=== PATIENT | male | born 1970 | race Two or more races ===

== ENCOUNTER 2022-10-06 21:47 | Inpatient (IN) | payer SELFPAY ==
[~2022-10-06] VITALS: Ht 165.1 cm; Wt 94.8 kg
[2022-10-06 23:25] LABS: HEMATOCRIT. 26.5 % (42.0-52.0); HEMOGLOBIN. 7.8 g/dL (14.0-18.0); MEAN CORPUSCULAR HEMOGLOBIN 18.3 pg (28.0-32.0); MEAN CORPUSCULAR VOLUME 62.6 fL (80.0-94.0); MEAN PLATELET VOLUME 8.6 fl (7.4-10.4); PLATELET 64 x1000/uL (130-400); RED BLOOD CELL COUNT 4.24 mill/uL (4.7-6.1); RED CELL DISTRIBUTION WIDTH 22.2 % (11.6-14.6)
[2022-10-07 01:05] LABS: CHLORIDE 101 mEq/L (98-107)
[2022-10-07] MEDS ORDERED: DEXT 5%/0.45% NACL 1000ML 1,000 ML IV SCH (03:30)
[2022-10-07] MEDS ORDERED: CLONIDINE 0.1MG TABLET PO PRN (03:30)
[2022-10-07] MEDS ORDERED: ONDANSETRON HCL 4MG/2ML INJ IV PRN (03:30)
[2022-10-07] MEDS ORDERED: NA PHOS,M-B/NA PHOS,DI-BA ENEMA 118ML PR PRN (03:30)
[2022-10-07] MEDS ORDERED: DOCUSATE SODIUM 100MG CAPSULE PO PRN (03:30)
[2022-10-07] MEDS ORDERED: HYDROCODONE/ACETAMINOPHEN 5/325MG TABLET PO PRN (03:30)
[2022-10-07] MEDS ORDERED: ACETAMINOPHEN 325MG TABLET PO PRN ×2 (03:30)
[2022-10-07] MEDS ORDERED: MAGNESIUM/ALUMINUM HYDROXIDE/SIMETHICONE 30ML UDC PO PRN (03:30)
[2022-10-07] MEDS ORDERED: GUAIFENESIN 200MG/10ML SUGAR FREE UDC PO PRN (03:30)
[2022-10-07] MEDS ORDERED: IPRATROPIUM/ALBUTEROL 0.5-3(2.5)MG/3ML NEB HHN PRN (03:30)
[2022-10-07 04:06] LABS: HEMOGLOBIN. 7.4 g/dL (14.0-18.0); MEAN CORPUSCULAR HEMOGLOBIN 18.3 pg (28.0-32.0); MEAN CORPUSCULAR VOLUME 61.8 fL (80.0-94.0); MEAN PLATELET VOLUME 8.5 fl (7.4-10.4); PLATELET 60 x1000/uL (130-400); RED BLOOD CELL COUNT 4.04 mill/uL (4.7-6.1); RED CELL DISTRIBUTION WIDTH 22.4 % (11.6-14.6)
[2022-10-07 04:12] LABS: CHLORIDE 105 mEq/L (98-107)
[2022-10-07 04:27] LABS: HDL CHOLESTEROL 66 mg/dL (40-59); LDL CHOLESTEROL 66 mg/dL (5-100); T4 FREE 1.35 ng/dL (0.76-1.46)
[2022-10-07 04:29] LABS: D-DIMER 8.7 mg/L FEU (<0.50); INR 1.2; PROTHROMBIN TIME 13.2 sec (9.6-11.0)
[2022-10-07] MEDS ORDERED: LORAZEPAM 2MG/ML CPJ IV NR (04:30)
[2022-10-07 04:45] LABS: FOLIC ACID (FOLATE) SERUM 14.4 ng/mL (>5.38)
[2022-10-07] MEDS ORDERED: MVI, ADULT NO.1 10 ML, FOLIC ACID 1 MG, THIAMINE HCL 100 MG in SODIUM CHLORIDE 0.9% 1,0... IV SCH ×8 (05:00→18:30)
[2022-10-07 05:11] LABS: PLATELET ESTIMATE DECREASED
[2022-10-07 08:59] LABS: PLATELET ESTIMATE DECREASED
[2022-10-07] MEDS ORDERED: CHLORDIAZEPOXIDE 5 MG CAPSULE PO PRN (10:00)
[2022-10-07 10:43] LABS: PHOSPHORUS 2.1 mg/dL (2.5-4.9)
[2022-10-07 11:17] LABS: ETHANOL BLOOD < 10 mg/dL (-10)
[2022-10-07] MEDS ORDERED: MAGNESIUM 2 G PREMIX 50 ML IV SCH (11:30)
[2022-10-07 12:00] VITALS: BP_SYST 151; BP_DIAS 63; BP_DIAS 74; PULSE 101; PULSE 94; RESP 16; TEMP 98.2; TEMP 98.6
[2022-10-07 12:12] LABS: HEMATOCRIT 25.9 % (42.0-52.0); HEMOGLOBIN 7.6 g/dL (14.0-18.0)
[2022-10-07 12:28] LABS: HAPTOGLOBIN 111 mg/dL (30-200)
[2022-10-07] MEDS ORDERED: POTASSIUM PHOS,M-BASIC-D-BASIC 15 MMOL in DEXT 5% WATER 245 ML IV SCH (12:30)
[2022-10-07] MEDS: FERROUS SULFATE 325MG TABLET PO SCH (14:36)
[2022-10-07] MEDS: PANTOPRAZOLE 40MG DR TABLET PO SCH (14:36)
[2022-10-07] MEDS ORDERED: MAGNESIUM 2 G PREMIX 50 ML IV NR (15:00)
[2022-10-07 16:00] VITALS: BP 150/72; PULSE 88; RESP 18; TEMP 97.8
[2022-10-07 18:25] LABS: CLARITY URINE CLEAR (CLEAR); COLOR URINE DARK YELLOW (YELLOW); KETONES URINE NEGATIVE (NEGATIVE); LEUKOCYTE ESTERASE URINE NEGATIVE (NEGATIVE); NITRITE URINE NEGATIVE (NEGATIVE); OCCULT BLOOD URINE 1+ (NEGATIVE); PROTEIN URINE 2+ (NEGATIVE); SPECIFIC GRAVITY URINE 1.016 (1.005-1.030)
[2022-10-07 18:36] LABS: *AMPHETAMINES SCREEN URINE NEGATIVE (NEGATIVE); *BARBITURATES SCREEN URINE NEGATIVE (NEGATIVE); *BENZODIAZEPINES SCREEN URINE NEGATIVE (NEGATIVE); *COCAINE SCREEN URINE NEGATIVE (NEGATIVE); CANNABINOID URINE SCREEN NEGATIVE (NEGATIVE); METHADONE URINE SCREEN NEGATIVE (NEGATIVE); OPIATES URINE SCREEN NEGATIVE (NEGATIVE); PHENCYCLIDINE URINE SCREEN NEGATIVE (NEGATIVE)
[2022-10-07] MEDS ORDERED: METO100T16 PO (18:44)
[2022-10-07] MEDS ORDERED: TRIA1TAB92 MT (18:44)
[2022-10-07] MEDS ORDERED: FERR236T3 MT (18:44)
[2022-10-07] MEDS ORDERED: THIA100T72 PO (18:44)
[2022-10-07 18:52] LABS: HEMOGLOBIN 7.8 g/dL (14.0-18.0)
[2022-10-07] MEDS ORDERED: NALOXONE HCL 0.4MG/ML VIAL IV PRN (19:15)
[2022-10-07 20:00] VITALS: BP 143/67; PULSE 89; RESP 18; TEMP 97.6
[2022-10-07] MEDS ORDERED: LORAZEPAM 2MG/ML CPJ IV PRN (23:15)
[2022-10-08] VITALS: BP 145/82; PULSE 86; RESP 20; TEMP 97.7
[2022-10-08 01:05] LABS: HEMATOCRIT 26.3 % (42.0-52.0); HEMOGLOBIN 7.6 g/dL (14.0-18.0)
[2022-10-08 04:00] VITALS: BP 148/61; PULSE 84; RESP 19; TEMP 97.6
[2022-10-08] MEDS ORDERED: CHLORDIAZEPOXIDE 25MG CAPSULE PO SCH (06:00)
[2022-10-08 06:50] LABS: HEMOGLOBIN 7.3 g/dL (14.0-18.0)
[2022-10-08 08:00] VITALS: BP 154/72; PULSE 81; RESP 18; TEMP 98.8
[2022-10-08] MEDS: THIAMINE HCL 100MG TABLET PO SCH (08:21)
[2022-10-08] MEDS: FERROUS SULFATE 325MG TABLET PO SCH (08:21)
[2022-10-08] MEDS: PANTOPRAZOLE 40MG DR TABLET PO SCH (08:21)
[2022-10-08] MEDS ORDERED: LORAZEPAM 2MG/ML CPJ IV PRN (09:15)
[2022-10-08 10:58] LABS: CHLORIDE 106 mEq/L (98-107)
[2022-10-08 11:13] LABS: PHOSPHORUS 2.5 mg/dL (2.5-4.9)
[2022-10-08 12:00] VITALS: BP_SYST 152; BP_SYST 154; BP_SYST 156; BP_DIAS 67; BP_DIAS 72; BP_DIAS 75; PULSE 80; RESP 18; TEMP 97.7
[2022-10-08 12:44] LABS: HEMOGLOBIN 7.3 g/dL (14.0-18.0)
[2022-10-08] MEDS: CHLORDIAZEPOXIDE 25MG CAPSULE PO SCH ×2 (14:53→21:30)
[2022-10-08 16:00] VITALS: BP 151/76; PULSE 76; RESP 18; TEMP 96.8
[2022-10-08 18:32] LABS: HEMATOCRIT 27.5 % (42.0-52.0); HEMOGLOBIN 7.9 g/dL (14.0-18.0)
[2022-10-08 20:00] VITALS: BP_SYST 158; BP_SYST 160; BP_SYST 161; BP_DIAS 69; BP_DIAS 73; BP_DIAS 85; PULSE 82; RESP 20; TEMP 97.9
[2022-10-08] MEDS ORDERED: DIPHENHYDRAMINE 12.5MG/5ML UDC PO ONE (20:45)
[2022-10-08] MEDS ORDERED: DIPHENHYDRAMINE 50MG/ML VIAL IV NR (21:00)
[2022-10-09] VITALS: BP_SYST 142; BP_SYST 148; BP_SYST 152; BP_DIAS 65; BP_DIAS 68; BP_DIAS 76; PULSE 72; RESP 18; TEMP 98
[2022-10-09 04:00] VITALS: BP_SYST 135; BP_SYST 138; BP_SYST 140; BP_DIAS 73; BP_DIAS 75; BP_DIAS 82; PULSE 90; RESP 20; TEMP 98.5
[2022-10-09] MEDS: CHLORDIAZEPOXIDE 25MG CAPSULE PO SCH ×3 (05:11→20:27)
[2022-10-09] MEDS: PANTOPRAZOLE 40MG DR TABLET PO SCH (07:53)
[2022-10-09 08:00] VITALS: BP 141/77; PULSE 66; RESP 16; TEMP 97.8
[2022-10-09 08:39] LABS: HEMATOCRIT 26.7 % (42.0-52.0); HEMOGLOBIN 7.7 g/dL (14.0-18.0); MEAN CORPUSCULAR HEMOGLOBIN 18.2 pg (28.0-32.0); MEAN CORPUSCULAR VOLUME 62.8 fL (80.0-94.0); RED BLOOD CELL COUNT 4.25 mill/uL (4.7-6.1); RED CELL DISTRIBUTION WIDTH 22.8 % (11.6-14.6)
[2022-10-09] MEDS: THIAMINE HCL 100MG TABLET PO SCH (09:06)
[2022-10-09] MEDS: FERROUS SULFATE 325MG TABLET PO SCH (09:06)
[2022-10-09 11:27] LABS: CHLORIDE 106 mEq/L (98-107)
[2022-10-09 12:00] VITALS: BP_SYST 113; BP_SYST 126; BP_SYST 130; BP_DIAS 49; BP_DIAS 75; BP_DIAS 92; PULSE 85; RESP 16; TEMP 98
[2022-10-09 12:34] LABS: PHOSPHORUS 3.6 mg/dL (2.5-4.9)
[2022-10-09 16:00] VITALS: BP_SYST 135; BP_SYST 140; BP_DIAS 56; BP_DIAS 76; BP_DIAS 77; PULSE 88; RESP 16; TEMP 97.9
[2022-10-09] MEDS ORDERED: POTASSIUM CHLORIDE 20MEQ TABLET SR PO NR (17:30)
[2022-10-09 20:00] VITALS: BP_SYST 129; BP_SYST 135; BP_SYST 155; BP_DIAS 64; BP_DIAS 70; BP_DIAS 72; PULSE 92; RESP 20; TEMP 98.3
[2022-10-10] VITALS: BP 153/72; PULSE 85; RESP 20; TEMP 98.3
[2022-10-10 04:00] VITALS: BP 149/52; PULSE 88; RESP 20; TEMP 98.4
[2022-10-10] MEDS: CHLORDIAZEPOXIDE 25MG CAPSULE PO SCH (05:39)
[2022-10-10] MEDS: PANTOPRAZOLE 40MG DR TABLET PO SCH (05:39)
[2022-10-10 07:51] LABS: HEMATOCRIT 26.5 % (42.0-52.0); HEMOGLOBIN 7.8 g/dL (14.0-18.0); MEAN CORPUSCULAR HEMOGLOBIN 18.7 pg (28.0-32.0); MEAN CORPUSCULAR VOLUME 63.8 fL (80.0-94.0); RED BLOOD CELL COUNT 4.16 mill/uL (4.7-6.1); RED CELL DISTRIBUTION WIDTH 23.6 % (11.6-14.6)
[2022-10-10 08:00] VITALS: BP 143/74; PULSE 99; RESP 20; TEMP 97.6
[2022-10-10] MEDS: FERROUS SULFATE 325MG TABLET PO SCH (08:39)
[2022-10-10] MEDS: THIAMINE HCL 100MG TABLET PO SCH (08:39)
[2022-10-10] MEDS ORDERED: THIA100T72 PO (09:00)
[2022-10-10] MEDS ORDERED: METOPROLOL TARTRATE 25MG TABLET PO SCH (09:00)
[2022-10-10] MEDS ORDERED: FOLI-43 MT (09:00)
[2022-10-10 10:26] LABS: CHLORIDE 107 mEq/L (98-107)
[2022-10-10 10:45] LABS: PHOSPHORUS 3.3 mg/dL (2.5-4.9)
[2022-10-10 10:55] VITALS: BP 143/74; PULSE 99; TEMP 97.6; O2SAT 98
[2022-10-10 11:25] LABS: PLATELET 100 x1000/uL (130-400)
[2022-10-11 04:12] LABS: HLA CLASS 1 ANTIBODY Negative (Negative); IIb/IIIa ANTIBODY Negative (Negative); Ia/IIa ANTIBODY Negative (Negative); Ib/IX ANTIBODY Negative (Negative)
== END 2022-10-10 13:58 | disposition home or self-care (01) | DRG 204 ==
LOC: ER 23:00 → 7WST 10-07 11:35
PROVIDERS: ADMIT Internal Medicine; ATTEND Internal Medicine
DX: R55 Syncope and collapse (principal); D65 Disseminated intravascular coagulation [defibrination syndrome]; E46 Unspecified protein-calorie malnutrition; E83.39 Other disorders of phosphorus metabolism; D50.9 Iron deficiency anemia, unspecified; F17.210 Nicotine dependence, cigarettes, uncomplicated; K74.60 Unspecified cirrhosis of liver; E83.42 Hypomagnesemia; K76.0 Fatty (change of) liver, not elsewhere classified; R73.9 Hyperglycemia, unspecified; F10.139 Alcohol abuse with withdrawal, unspecified; I10 Essential (primary) hypertension; E87.6 Hypokalemia; R56.9 Unspecified convulsions; I83.93 Asymptomatic varicose veins of bilateral lower extremities; I87.2 Venous insufficiency (chronic) (peripheral); R16.1 Splenomegaly, not elsewhere classified; Y90.9 Presence of alcohol in blood, level not specified; Z91.148 Patient's other noncompliance with medication regimen for other reason; Z68.34 Body mass index [BMI] 34.0-34.9, adult
CPT/HCPCS: 36415; 71045; 76700; 80048; 80053; 80061; 80305; 80320; 81003; 82248; 82607; 82728; 82746; 82962; 83010; 83036; 83540; 83615; 83735; 83880; 84100; 84439; 84443; 84484; 85014; 85018; 85025; 85027; 85044; 85379; 85576; 86022; 86850; 86900; 93005; 93306; 93880; 93970; 97162; 99285; J1200; J2310; J3411; J3475; J3490; J7030; J7060; G0480

== ENCOUNTER 2023-04-09 20:18 | Emergency (ER) | payer SELFPAY ==
[~2023-04-09] VITALS: Ht 175.3 cm; Wt 104.0 kg
[~2023-04-09 20:18] MED LIST: FERR236T3 MT; FOLI-43 MT; METO100T16 PO; THIA100T72 PO
[2023-04-09 20:20] VITALS: O2SAT 100
[2023-04-09] MEDS ORDERED: LEVETIRACETAM 500MG PREMIX 100 ML IV ONE ×2 (20:45)
[2023-04-09] MEDS ORDERED: LORAZEPAM 2MG/ML INJ IV ONE (20:45)
[2023-04-09] MEDS ORDERED: SODIUM CHLORIDE 0.9% 1,000 ML IV ONE (20:45)
[2023-04-09 20:54] LABS: HEMATOCRIT. 29.3 % (42.0-52.0); HEMOGLOBIN. 8.4 g/dL (14.0-18.0); MEAN CORPUSCULAR HEMOGLOBIN 18.9 pg (28.0-32.0); MEAN CORPUSCULAR HGB CONC 28.6 g/dL (31.0-37.0); MEAN CORPUSCULAR VOLUME 66.2 fL (80.0-94.0); MEAN PLATELET VOLUME 8.3 fl (7.4-10.4); RED BLOOD CELL COUNT 4.43 mill/uL (4.7-6.1); RED CELL DISTRIBUTION WIDTH 21.2 % (11.6-14.6); WHITE BLOOD COUNT 5.4 x1000/uL (4.5-11.0)
[2023-04-09 21:07] LABS: DIFFERENTIAL COMMENT 1; PLATELET 45 x1000/uL (130-400)
[2023-04-09 21:15] LABS: ALANINE AMINOTRANSFERASE 34 IU/L (10-49); ALBUMIN 3.6 g/dL (3.2-4.8); ASPARTATE AMINOTRANSFERASE 96 IU/L (<34); BILIRUBIN TOTAL 2.2 mg/dL (0.1-1.0); CALCIUM 8.4 mg/dL (8.7-10.4); CARBON DIOXIDE 20 mEq/L (21-32); CHLORIDE 98 mEq/L (98-107); CREATININE 0.7 mg/dL (0.6-1.3); GLUCOSE 200 mg/dL (70-105); POTASSIUM 3.4 mEq/L (3.5-5.1); PROTEIN TOTAL 8.1 g/dL (6.0-8.3); SODIUM 134 mEq/L (136-145); TROPONIN I HIGH SENSITIVITY 9 ng/L (3.0-53); UREA NITROGEN BLOOD 10 mg/dL (9-23)
[2023-04-09 21:36] LABS: ANISOCYTOSIS 1+; PLATELET ESTIMATE MARKEDLY DECREASED
[2023-04-09 21:37] LABS: HYPOCHROMASIA 3+; MICROCYTOSIS 3+
[2023-04-09 22:51] LABS: CLARITY URINE CLEAR (CLEAR); COLOR URINE YELLOW (YELLOW); GLUCOSE URINE NEGATIVE (NEGATIVE); KETONES URINE NEGATIVE (NEGATIVE); LEUKOCYTE ESTERASE URINE NEGATIVE (NEGATIVE); NITRITE URINE NEGATIVE (NEGATIVE); OCCULT BLOOD URINE 1+ (NEGATIVE); PH URINE 7.5 (4.5-8.0); PROTEIN URINE 1+ (NEGATIVE); SPECIFIC GRAVITY URINE 1.004 (1.005-1.030)
[2023-04-09 23:19] LABS: WBC URINE NONE SEEN /hpf (0-2)
[2023-04-09 23:20] LABS: BACTERIA URINE NONE SEEN; SQUAMOUS EPITHELIAL CELL URINE NONE SEEN /lpf (RARE/1+)
[2023-04-10] MEDS ORDERED: KEPP500 MT (00:46)
[2023-04-10 01:54] VITALS: BP 149/59; PULSE 78; RESP 14; TEMP 98.4
[2023-04-10 03:40] LABS: *AMPHETAMINES SCREEN URINE NEGATIVE (NEGATIVE); *BARBITURATES SCREEN URINE NEGATIVE (NEGATIVE); *BENZODIAZEPINES SCREEN URINE NEGATIVE (NEGATIVE); *COCAINE SCREEN URINE NEGATIVE (NEGATIVE); CANNABINOID URINE SCREEN NEGATIVE (NEGATIVE); ECSTASY MDMA SCREEN URINE NEGATIVE (NEGATIVE); METHADONE URINE SCREEN Neg (NEGATIVE); OPIATES URINE SCREEN NEGATIVE (NEGATIVE); PHENCYCLIDINE URINE SCREEN NEGATIVE (NEGATIVE)
== END 2023-04-10 02:00 | disposition home or self-care (01) ==
LOC: ER 20:21
DX: G40.901 Epilepsy, unspecified, not intractable, with status epilepticus (principal); F10.10 Alcohol abuse, uncomplicated
CPT/HCPCS: 99285; 96365; 70450; 71045; 96375; 80053; 80305; 83880; 85025; 84484; 36415; 93005; 81003; J1953; J2060; J7030

== ENCOUNTER 2023-07-15 18:00 | Inpatient (IN) | payer SELFPAY ==
[~2023-07-15] VITALS: Ht 167.6 cm; Wt 113.9 kg
[~2023-07-15 18:00] MED LIST changes: +KEPP500 MT
[2023-07-15] MEDS: SODIUM CHLORIDE 0.9% 1,000 ML IV ONE (18:31)
[2023-07-15] MEDS: LEVETIRACETAM 500MG PREMIX 100 ML IV ONE (18:31)
[2023-07-15 18:39] LABS: HEMATOCRIT. 28.4 % (42.0-52.0); HEMOGLOBIN. 8.1 g/dL (14.0-18.0); MEAN CORPUSCULAR HEMOGLOBIN 18.9 pg (28.0-32.0); MEAN CORPUSCULAR HGB CONC 28.4 g/dL (31.0-37.0); MEAN CORPUSCULAR VOLUME 66.4 fL (80.0-94.0); RED BLOOD CELL COUNT 4.27 mill/uL (4.7-6.1); RED CELL DISTRIBUTION WIDTH 21.1 % (11.6-14.6); WHITE BLOOD COUNT 5.7 x1000/uL (4.5-11.0)
[2023-07-15 18:42] LABS: CHLORIDE 102 mEq/L (98-107); POTASSIUM 3.4 mEq/L (3.5-5.1); SODIUM 136 mEq/L (136-145)
[2023-07-15 18:43] LABS: CALCIUM 8.3 mg/dL (8.7-10.4); CARBON DIOXIDE 15 mEq/L (21-32)
[2023-07-15] MEDS ORDERED: BACITRACIN ZINC OINT UDPKT TOP ONE (18:45)
[2023-07-15 18:48] LABS: GLUCOSE 247 mg/dL (70-105); UREA NITROGEN BLOOD 11 mg/dL (9-23)
[2023-07-15 18:49] LABS: DIFFERENTIAL COMMENT 1; TROPONIN I HIGH SENSITIVITY 7 ng/L (3.0-53)
[2023-07-15 18:50] LABS: ALANINE AMINOTRANSFERASE 44 IU/L (10-49); ALBUMIN 3.9 g/dL (3.2-4.8); ASPARTATE AMINOTRANSFERASE 141 IU/L (<34); ETHANOL BLOOD < 10 mg/dL (<10); MEAN PLATELET VOLUME 8.5 fl (7.4-10.4); PLATELET 45 x1000/uL (130-400)
[2023-07-15 18:51] LABS: BILIRUBIN TOTAL 3.1 mg/dL (0.1-1.0); PROTEIN TOTAL 7.8 g/dL (6.0-8.3)
[2023-07-15] MEDS ORDERED: FOLIC ACID 1 MG, THIAMINE HCL 100 MG, MVI, ADULT NO.1 10 ML in DEXTROSE 5% WATER 1,000 ML IV ONE (19:00)
[2023-07-15 19:18] LABS: ATYPICAL LYMPHOCYTES 2; NUCLEATED RED BLOOD CELLS 4 /100 WBC
[2023-07-15 19:19] LABS: HYPOCHROMASIA 2+; MICROCYTOSIS 2+; PLATELET ESTIMATE MARKEDLY DECREASED
[2023-07-15] MEDS ORDERED: ONDANSETRON HCL 4MG/2ML INJ IV PRN (21:15)
[2023-07-15] MEDS ORDERED: ACETAMINOPHEN 650MG/20.3ML UDC GT PRN (21:15)
[2023-07-15] MEDS ORDERED: IPRATROPIUM/ALBUTEROL 0.5-3(2.5)MG/3ML NEB HHN PRN (21:15)
[2023-07-15] MEDS ORDERED: MAGNESIUM/ALUMINUM HYDROXIDE/SIMETHICONE 30ML UDC PO PRN (21:15)
[2023-07-15] MEDS ORDERED: MVI, ADULT NO.1 10 ML, FOLIC ACID 1 MG, THIAMINE HCL 100 MG in SODIUM CHLORIDE 0.9% 1,0... IV SCH (21:15)
[2023-07-15] MEDS: KETOROLAC 15MG/ML VIAL IV ONE (22:00)
[2023-07-15] MEDS: LORAZEPAM 2MG/ML INJ IV ONE (22:00)
[2023-07-15] MEDS ORDERED: [UNRECOGNIZED DRUG - REMARK] IV SCH (22:00)
[2023-07-15] MEDS: [UNRECOGNIZED DRUG - REMARK] IV SCH (22:25)
[2023-07-15] MEDS: PANTOPRAZOLE SODIUM 40 MG/VIAL IV SCH (22:29)
[2023-07-15] MEDS: BACITRACIN ZINC OINT UDPKT TOP NR (22:31)
[2023-07-15 22:44] LABS: CLARITY URINE CLEAR (CLEAR); COLOR URINE YELLOW (YELLOW); GLUCOSE URINE NEGATIVE (NEGATIVE); KETONES URINE NEGATIVE (NEGATIVE); LEUKOCYTE ESTERASE URINE NEGATIVE (NEGATIVE); NITRITE URINE NEGATIVE (NEGATIVE); OCCULT BLOOD URINE 1+ (NEGATIVE); PROTEIN URINE 1+ (NEGATIVE); SPECIFIC GRAVITY URINE 1.011 (1.005-1.030)
[2023-07-15 22:53] LABS: *AMPHETAMINES SCREEN URINE NEGATIVE (NEGATIVE); *BARBITURATES SCREEN URINE NEGATIVE (NEGATIVE); *BENZODIAZEPINES SCREEN URINE NEGATIVE (NEGATIVE); *COCAINE SCREEN URINE NEGATIVE (NEGATIVE); BACTERIA URINE NONE SEEN; CANNABINOID URINE SCREEN NEGATIVE (NEGATIVE); ECSTASY MDMA SCREEN URINE NEGATIVE (NEGATIVE); METHADONE URINE SCREEN NEGATIVE (NEGATIVE); OPIATES URINE SCREEN NEGATIVE (NEGATIVE); PHENCYCLIDINE URINE SCREEN NEGATIVE (NEGATIVE); SQUAMOUS EPITHELIAL CELL URINE 1+ /lpf (RARE/1+); WBC URINE 0-2 /hpf (0-2)
[2023-07-15] MEDS: DIATR MEGLU/DIATRIZOATE SOLN 30ML ONE (23:28)
[2023-07-16] VITALS (8 sets, daily range): BP systolic 128–144; BP diastolic 70–78; PULSE 70–93; RESP 16–26; TEMP 97.4–99.9
[2023-07-16 00:11] LABS: HEMATOCRIT 25.9 % (42.0-52.0); HEMOGLOBIN 7.6 g/dL (14.0-18.0)
[2023-07-16 00:19] LABS: CARBON DIOXIDE 27 mEq/L (21-32); CHLORIDE 105 mEq/L (98-107); POTASSIUM 3.5 mEq/L (3.5-5.1); SODIUM 138 mEq/L (136-145)
[2023-07-16 00:20] LABS: D-DIMER 4.31 mg/L FEU (<0.50); INR 1.2; PARTIAL THROMBOPLASTIN TIME 25.4 sec (23.4-31.0); PROTHROMBIN TIME 12.8 sec (9.6-11.0)
[2023-07-16 00:24] LABS: CREATININE 0.7 mg/dL (0.6-1.3); IRON 23 ug/dL (65-175)
[2023-07-16 00:25] LABS: GLUCOSE 141 mg/dL (70-105); UREA NITROGEN BLOOD 9 mg/dL (9-23)
[2023-07-16 00:26] LABS: AMMONIA < 17 uMol/L (<32); CREATINE KINASE MB FRACTION 2.9 ng/mL (0.5-3.6)
[2023-07-16 00:27] LABS: BILIRUBIN DIRECT 1.8 mg/dL (<=3.0); GAMMA GLUTAMYL TRANSPEPTIDASE 648 IU/L (<73); PHOSPHORUS 2.1 mg/dL (2.5-4.9); TOTAL IRON BINDING CAPACITY 282 ug/dl (250-425)
[2023-07-16 00:33] LABS: FERRITIN 16 ng/mL (22-322)
[2023-07-16 00:35] LABS: FOLIC ACID (FOLATE) SERUM 13.94 ng/mL (>5.38); VITAMIN B12 SERUM 1017 pg/mL (211-911)
[2023-07-16 00:46] LABS: HEPATITIS B SURFACE ANTIGEN NEGATIVE (Negative)
[2023-07-16 01:06] LABS: HEPATITIS A AB IGM NEGATIVE (Negative)
[2023-07-16 01:07] LABS: HEPATITIS B CORE AB IGM NEGATIVE (Negative); HEPATITIS C AB NON REACTIVE (Neg) (Negative)
[2023-07-16] MEDS: POTASSIUM PHOSPHATE 30 MMOL in SODIUM CHLORIDE 0.9% 490 ML IV NR (02:38)
[2023-07-16] MEDS ORDERED: DEXTROSE 50% WATER 50ML SYRINGE IV PRN (03:30)
[2023-07-16] MEDS ORDERED: DEXT 5%/0.2% NACL 1,000 ML IV SCH (03:45)
[2023-07-16 04:57] LABS: HEMATOCRIT. 26.1 % (42.0-52.0); HEMOGLOBIN. 7.6 g/dL (14.0-18.0); MEAN CORPUSCULAR HEMOGLOBIN 18.7 pg (28.0-32.0); MEAN CORPUSCULAR HGB CONC 28.9 g/dL (31.0-37.0); MEAN CORPUSCULAR VOLUME 64.8 fL (80.0-94.0); MEAN PLATELET VOLUME 8.6 fl (7.4-10.4); RED BLOOD CELL COUNT 4.04 mill/uL (4.7-6.1); RED CELL DISTRIBUTION WIDTH 21.6 % (11.6-14.6); WHITE BLOOD COUNT 4.7 x1000/uL (4.5-11.0)
[2023-07-16 05:01] LABS: DIFFERENTIAL COMMENT 1
[2023-07-16 05:02] LABS: CHLORIDE 105 mEq/L (98-107); POTASSIUM 3.6 mEq/L (3.5-5.1); SODIUM 136 mEq/L (136-145)
[2023-07-16 05:03] LABS: CARBON DIOXIDE 24 mEq/L (21-32)
[2023-07-16 05:08] LABS: CREATININE 0.7 mg/dL (0.6-1.3); GLUCOSE 167 mg/dL (70-105); TRIGLYCERIDE 100 mg/dL (0-150); UREA NITROGEN BLOOD 7 mg/dL (9-23)
[2023-07-16 05:09] LABS: LDL CHOLESTEROL 99 mg/dL (5-100); PLATELET 37 x1000/uL (130-400)
[2023-07-16 05:10] LABS: ALANINE AMINOTRANSFERASE 41 IU/L (10-49); ALBUMIN 3.5 g/dL (3.2-4.8); ASPARTATE AMINOTRANSFERASE 129 IU/L (<34); BILIRUBIN TOTAL 3.4 mg/dL (0.1-1.0); CHOLESTEROL 179 mg/dL (<200); HDL CHOLESTEROL 74 mg/dL (>55); PHOSPHORUS 2.4 mg/dL (2.5-4.9)
[2023-07-16 05:11] LABS: PROTEIN TOTAL 7.3 g/dL (6.0-8.3)
[2023-07-16 05:12] LABS: THYROID STIMULATING HORMONE 2.37 uIU/mL (0.55-4.78)
[2023-07-16 05:23] LABS: GIANT PLATELETS 1+; HYPOCHROMASIA 2+; PLATELET ESTIMATE MARKEDLY DECREASED
[2023-07-16 05:24] LABS: OVALOCYTES 1+; TARGET CELLS 3+
[2023-07-16 05:25] LABS: TEAR DROP CELLS 1+
[2023-07-16] MEDS ORDERED: ONDANSETRON HCL 4MG/2ML INJ IV PRN (06:30)
[2023-07-16] MEDS ORDERED: DEXT 5%/0.45% NACL 1000ML 1,000 ML IV SCH (06:30)
[2023-07-16] MEDS ORDERED: IPRATROPIUM/ALBUTEROL 0.5-3(2.5)MG/3ML NEB HHN PRN (06:30)
[2023-07-16] MEDS ORDERED: PIPERACILLIN/TAZOBACTAM 3.375 G in DEXTROSE 5% WATER 50 ML IV SCH (06:30)
[2023-07-16] MEDS ORDERED: ACETAMINOPHEN 325MG TABLET PO PRN (06:30)
[2023-07-16] MEDS ORDERED: PIPERACILLIN/TAZO 3.375G/50ML IV SCH (06:45)
[2023-07-16] MEDS ORDERED: IOHEXOL-300 100 ML BOTTLE ONE (07:06)
[2023-07-16] MEDS: BLOOD SUGAR DIAGNOSTIC STRIP TEST SCH (07:30)
[2023-07-16] MEDS: INSULIN LISPRO 100 UNITS/ML SUBCUT SCH (08:00)
[2023-07-16] MEDS ORDERED: THIAMINE HCL 100MG TABLET PO SCH (09:00)
[2023-07-16] MEDS ORDERED: PANTOPRAZOLE SODIUM 40 MG/VIAL IV SCH (09:00)
[2023-07-16] MEDS: LEVETIRACETAM 500MG PREMIX 100 ML IV SCH ×2 (09:37→21:46)
[2023-07-16] MEDS: MAGNESIUM 2 G PREMIX 50 ML IV NR (09:38)
[2023-07-16] MEDS: POTASSIUM PHOSPHATE 15 MMOL in DEXT 5% WATER 245 ML IV NR (09:40)
[2023-07-16] MEDS: FOLIC ACID 1MG TABLET PO SCH (10:01)
[2023-07-16] MEDS: MULTIVITAMINS,THER W-MINERALS TABLET PO SCH (10:01)
[2023-07-16] MEDS: THIAMINE HCL 100MG TABLET PO SCH (10:02)
[2023-07-16] MEDS: PANTOPRAZOLE SODIUM 40 MG/VIAL IV SCH (10:02)
[2023-07-16] MEDS: CEFTRIAXONE 2GM/50ML 50 ML IV SCH (11:02)
[2023-07-16 13:01] LABS: HEMATOCRIT 26.2 % (42.0-52.0); HEMOGLOBIN 7.6 g/dL (14.0-18.0)
[2023-07-16] MEDS: METRONIDAZOLE 500 MG PREMIX 100 ML IV SCH (14:53)
[2023-07-16] MEDS: LACTATED RINGERS 1,000 ML IV SCH (14:54)
[2023-07-16] MEDS: CHLORDIAZEPOXIDE 10MG CAPSULE PO SCH (17:38)
[2023-07-17] VITALS: BP 122/57; PULSE 72; RESP 28; TEMP 97.7
[2023-07-17 04:00] VITALS: BP 154/70; PULSE 76; RESP 26; TEMP 97.9
[2023-07-17 07:58] LABS: HEMOGLOBIN 7.7 g/dL (14.0-18.0); MEAN CORPUSCULAR HEMOGLOBIN 18.4 pg (28.0-32.0); MEAN CORPUSCULAR HGB CONC 28.4 g/dL (31.0-37.0); MEAN CORPUSCULAR VOLUME 64.8 fL (80.0-94.0); RED BLOOD CELL COUNT 4.16 mill/uL (4.7-6.1); RED CELL DISTRIBUTION WIDTH 21.4 % (11.6-14.6); WHITE BLOOD COUNT 4.1 x1000/uL (4.5-11.0)
[2023-07-17 08:00] VITALS: BP 154/99; PULSE 86; RESP 29; TEMP 97.9
[2023-07-17 08:13] LABS: CHLORIDE 105 mEq/L (98-107); POTASSIUM 3.6 mEq/L (3.5-5.1); SODIUM 137 mEq/L (136-145)
[2023-07-17 08:16] LABS: CARBON DIOXIDE 22 mEq/L (21-32)
[2023-07-17 08:17] LABS: CALCIUM 8.6 mg/dL (8.7-10.4)
[2023-07-17 08:21] LABS: CREATININE 0.7 mg/dL (0.6-1.3); GLUCOSE 119 mg/dL (70-105)
[2023-07-17 08:22] LABS: UREA NITROGEN BLOOD 6 mg/dL (9-23)
[2023-07-17 08:23] LABS: ALANINE AMINOTRANSFERASE 36 IU/L (10-49); ALBUMIN 3.2 g/dL (3.2-4.8); ASPARTATE AMINOTRANSFERASE 107 IU/L (<34); CREATINE KINASE 396 IU/L (46-171)
[2023-07-17 08:24] LABS: BILIRUBIN TOTAL 2.7 mg/dL (0.1-1.0); PHOSPHORUS 3.1 mg/dL (2.5-4.9); PROTEIN TOTAL 6.8 g/dL (6.0-8.3)
[2023-07-17] MEDS: METOPROLOL TARTRATE 100MG TABLET PO SCH (08:27)
[2023-07-17 10:00] VITALS: BP 123/77; PULSE 71; RESP 28
[2023-07-17] MEDS: CEFTRIAXONE 1GM/50ML 50 ML IV SCH (10:02)
[2023-07-17 10:04] LABS: PLATELET 40 x1000/uL (130-400)
[2023-07-17] MEDS ORDERED: KEPP500 MT (12:18)
[2023-07-17] MEDS ORDERED: FOLI-43 MT (12:18)
[2023-07-17 12:25] VITALS: BP 123/77; PULSE 71; TEMP 97.9; O2SAT 96
== END 2023-07-17 14:54 | disposition home or self-care (01) | DRG 53 ==
LOC: ER 18:00 → 5EST 20:27 → EDBEDREQ 20:38 → EDBEDREQTM 20:38 → ER 07-16 05:45
PROVIDERS: ADMIT Internal Medicine; ATTEND Internal Medicine
DX: G40.909 Epilepsy, unspecified, not intractable, without status epilepticus (principal); D69.6 Thrombocytopenia, unspecified; D68.59 Other primary thrombophilia; M62.82 Rhabdomyolysis; K76.6 Portal hypertension; D50.9 Iron deficiency anemia, unspecified; E80.6 Other disorders of bilirubin metabolism; K70.30 Alcoholic cirrhosis of liver without ascites; R73.9 Hyperglycemia, unspecified; I10 Essential (primary) hypertension; D69.59 Other secondary thrombocytopenia; E83.42 Hypomagnesemia; E87.6 Hypokalemia; K57.32 Diverticulitis of large intestine without perforation or abscess without bleeding; R73.03 Prediabetes; F10.139 Alcohol abuse with withdrawal, unspecified; Z91.148 Patient's other noncompliance with medication regimen for other reason; Z68.41 Body mass index [BMI] 40.0-44.9, adult; Z79.899 Other long term (current) drug therapy
CPT/HCPCS: 36415; 71045; 71270; 73130; 73560; 74178; 76705; 80048; 80053; 80061; 80305; 80320; 81003; 82140; 82248; 82542; 82550; 82553; 82607; 82728; 82746; 82962; 82977; 83036; 83540; 83550; 83605; 83735; 83880; 84100; 84145; 84443; 84484; 85014; 85018; 85025; 85027; 85379; 86705; 86709; 87340; 93005; 93970; 99285; C9113; J0696; J1815; J1953; J3411; J3475; J3480; J3490; J7030; J7040; J7060; J7070; J7120; Q9963; Q9967; G0480

== ENCOUNTER 2025-01-20 15:35 | Inpatient (IN) | payer MEDICARE ==
[~2025-01-20] VITALS: Ht 172.7 cm; Wt 108.9 kg
[~2025-01-20 15:35] MED LIST changes: +COR3 PO; +CYAN50007 MT; +FERR-63 PO; +FOLI-43 PO; +KEPP500 PO
[2025-01-20 15:39] VITALS: O2SAT 100
[2025-01-20] MEDS: SODIUM CHLORIDE 0.9% 1,000 ML IV ONE (16:51)
[2025-01-20] MEDS: ONDANSETRON HCL 4MG/2ML INJ IV ONE (16:51)
[2025-01-20] MEDS: LEVETIRACETAM 1000MG PREMIX 100 ML IV ONE (16:51)
[2025-01-20 17:38] LABS: BASOPHILS % 0.3 % (0.0-2.0); EOSINOPHILS % 0.1 % (0.0-5.0); LYMPHOCYTES % 7.2 % (20.0-50.0); MEAN PLATELET VOLUME 9.8 fl (7.4-10.4); MONOCYTES % 10.5 % (2.0-8.0); NEUTROPHILS % 81.9 % (40.0-76.0); RED BLOOD CELL COUNT 1.94 mill/uL (4.7-6.1); RED CELL DISTRIBUTION WIDTH 20.2 % (11.6-14.6)
[2025-01-20 17:47] LABS: UREA NITROGEN BLOOD 23 mg/dL (9-23)
[2025-01-20 17:48] LABS: ASPARTATE AMINOTRANSFERASE 135 IU/L (<34); HEMATOCRIT. 15.3 % (42.0-52.0); TROPONIN I HIGH SENSITIVITY 6 ng/L (3.0-53)
[2025-01-20 17:49] LABS: BILIRUBIN DIRECT 4.5 mg/dL (<=3.0); BILIRUBIN TOTAL 6.8 mg/dL (0.1-1.0); PROTEIN TOTAL 5.1 g/dL (6.0-8.3)
[2025-01-20 17:50] LABS: HEMOGLOBIN. 4.2 g/dL (14.0-18.0)
[2025-01-20 17:51] LABS: CREATININE 1.4 mg/dL (0.6-1.3)
[2025-01-20 17:53] LABS: ADD RBC MORPHOLOGY YES; PLATELET 44 x1000/uL (130-400)
[2025-01-20] MEDS ORDERED: MAGNESIUM 2 G PREMIX 50 ML IV PRN (18:30)
[2025-01-20] MEDS ORDERED: INSULIN REGULAR (HUMULIN R) 1000UNITS/10ML VIAL IV ONE (18:30)
[2025-01-20] MEDS ORDERED: SODIUM PHOSPHATE 15 MMOL in SODIUM CHLORIDE 0.9% 245 ML IV PRN (18:30)
[2025-01-20] MEDS ORDERED: INSULIN REGULAR (DRIP) 100 UNITS in SODIUM CHLORIDE 0.9% 99 ML IV SCH (18:30)
[2025-01-20] MEDS ORDERED: BLOOD SUGAR DIAGNOSTIC STRIP TEST PRN (18:30)
[2025-01-20] MEDS ORDERED: KCL 20MEQ/100ML PREMIX 100 ML IV PRN (18:30)
[2025-01-20 18:35] LABS: PLATELET ESTIMATE DECREASED
[2025-01-20 18:49] LABS: BG BASE EXCESS -13.5 mmol/L (-2.0-3.0); BG CARBOXYHEMOGLOBIN 2.4 % (0.5-1.5); BG DEOXYHEMOGLOBIN 2.4 % (0.0-5.0); BG FRACTION INSPIRED OXYGEN 21; BG HCO3 ACT 11.4 mmol/L (21.0-28.0); BG METHEMOGLOBIN 0.2 % (0.5-1.5); BG OXYGEN SATURATION 97.5 % (94.0-98.0); BG OXYHEMOGLOBIN 95.0 % (94.0-98.0); BG PCO2 22.1 mmHg (35.0-48.0); BG PH 7.331 (7.350-7.450); BG PO2 106.5 mmHg (83.0-108.0); BG SAMPLE SITE RIGHT RADIAL; BG TOTAL HEMOGLOBIN 4.3 g/dL (13.5-17.5); BG VENT MODE ROOM AIR
[2025-01-20] MEDS: SODIUM CHLORIDE 0.9% 1,000 ML IV SCH (19:10)
[2025-01-20] MEDS ORDERED: INSULIN REGULAR 100U/100ML PMX 100 ML IV SCH (19:15)
[2025-01-20] MEDS: DEXT 5%/0.9% NACL 1,000 ML IV SCH (20:03)
[2025-01-20] MEDS ORDERED: LORAZEPAM 0.5MG TABLET PO PRN (20:30)
[2025-01-20] MEDS ORDERED: LORAZEPAM 2MG/ML UD SYRINGE IV PRN (20:30)
[2025-01-20] MEDS: INSULIN REGULAR (HUMULIN R) 1000UNITS/10ML VIAL IV NR (20:30)
[2025-01-20] MEDS ORDERED: IPRATROPIUM/ALBUTEROL 0.5-3(2.5)MG/3ML NEB HHN PRN (20:30)
[2025-01-20] MEDS ORDERED: CLONIDINE 0.1MG TABLET PO PRN (20:30)
[2025-01-20] MEDS: INSULIN REGULAR 100U/100ML PMX 100 ML IV SCH (20:55)
[2025-01-20 22:10] VITALS: PULSE 100; RESP 24
[2025-01-20] MEDS ORDERED: NOREPINEPHRINE 8MG/250ML PMX 250 ML IV ONE (22:12)
[2025-01-20 22:16] LABS: CREATININE 1.4 mg/dL (0.6-1.3)
[2025-01-20 22:17] LABS: UREA NITROGEN BLOOD 22 mg/dL (9-23)
[2025-01-20 22:18] LABS: TROPONIN I HIGH SENSITIVITY 9 ng/L (3.0-53)
[2025-01-20 22:19] LABS: PHOSPHORUS 3.5 mg/dL (2.5-4.9)
[2025-01-20] MEDS ORDERED: EPINEPHRINE 10 MG in SODIUM CHLORIDE 0.9% 240 ML IV PRN (22:45)
[2025-01-20] MEDS: DEXTROSE 50% WATER 50ML SYRINGE IV PRN (23:37)
[2025-01-21] VITALS (98 sets, daily range): BP systolic 68–145; BP diastolic 30–112; PULSE 39–137; RESP 24–84; TEMP 31.78032–33.28044; O2SAT 35–100
[2025-01-21] MEDS ORDERED: MIDAZOLAM 100MG/100ML PMX 100 ML IV PRN
[2025-01-21] MEDS: TRANEXAMIC ACID 1,000MG/10ML IV NR (00:11)
[2025-01-21] MEDS: FENTANYL 2500MCG/250ML PMX 250 ML IV PRN (00:14)
[2025-01-21] MEDS: OCTREOTIDE 1,000 MCG in SODIUM CHLORIDE 0.9% 98 ML IV SCH (00:22)
[2025-01-21] MEDS ORDERED: MAGNESIUM 2 G PREMIX 50 ML IV NR (00:30)
[2025-01-21 00:35] LABS: BG BASE EXCESS -23.3 mmol/L (-2.0-3.0); BG CARBOXYHEMOGLOBIN 0.7 % (0.5-1.5); BG DEOXYHEMOGLOBIN 0.1 % (0.0-5.0); BG FRACTION INSPIRED OXYGEN 100; BG HCO3 ACT 6.3 mmol/L (21.0-28.0); BG METHEMOGLOBIN 0.4 % (0.5-1.5); BG OXYGEN SATURATION 99.9 % (94.0-98.0); BG OXYHEMOGLOBIN 98.8 % (94.0-98.0); BG PCO2 29.6 mmHg (35.0-48.0); BG PEEP (cmH2O) 8.0 cmH2O; BG PH 6.947 (7.350-7.450); BG PO2 357.7 mmHg (83.0-108.0); BG SAMPLE SITE RIGHT RADIAL; BG TIDAL VOLUME(mL) 500.0 mL; BG TOTAL HEMOGLOBIN 4.4 g/dL (13.5-17.5); BG VENT MODE VENT - AC; BG VENT RATE 24.0 set
[2025-01-21] MEDS ORDERED: ROCURONIUM BROMIDE 10MG/ML VIAL 5ML IV ONE (00:45)
[2025-01-21] MEDS: SODIUM BICARBONATE 8.4% 50MEQ/50ML SYR IV NR ×3 (01:31→09:27)
[2025-01-21] MEDS: EPINEPHRINE 10 MG in SODIUM CHLORIDE 0.9% 240 ML IV PRN (01:32)
[2025-01-21] MEDS: PANTOPRAZOLE SODIUM 40 MG/VIAL IV SCH (01:32)
[2025-01-21] MEDS: CALCIUM GLUCONATE 100MG/ML 10ML VIAL IV NR (01:36)
[2025-01-21] MEDS: SODIUM BICARBONATE 100 MEQ in SODIUM CHLORIDE 0.45% 900 ML IV SCH (01:51)
[2025-01-21] MEDS ORDERED: FENTANYL CITRATE 2,500 MCG in SODIUM CHLORIDE 0.9% 200 ML IV PRN (02:15)
[2025-01-21] MEDS: NOREPINEPHRINE 8MG/250ML PMX 250 ML IV PRN ×2 (03:11→11:13)
[2025-01-21] MEDS: MVI, ADULT NO.1 10 ML, FOLIC ACID 1 MG, THIAMINE HCL 100 MG in SODIUM CHLORIDE 0.9% 1,0... IV ONE (03:13)
[2025-01-21] MEDS: VANCOMYCIN 2GM PMX (XELLIA) 400 ML IV NR (03:14)
[2025-01-21] MEDS: BLOOD SUGAR DIAGNOSTIC STRIP TEST SCH ×2 (03:30→12:53)
[2025-01-21 04:34] LABS: BG BASE EXCESS -25.1 mmol/L (-2.0-3.0); BG CARBOXYHEMOGLOBIN 0.4 % (0.5-1.5); BG DEOXYHEMOGLOBIN 1.8 % (0.0-5.0); BG FRACTION INSPIRED OXYGEN 100; BG HCO3 ACT 5.6 mmol/L (21.0-28.0); BG METHEMOGLOBIN 0.3 % (0.5-1.5); BG OXYGEN SATURATION 98.2 % (94.0-98.0); BG OXYHEMOGLOBIN 97.5 % (94.0-98.0); BG PCO2 27.9 mmHg (35.0-48.0); BG PEEP (cmH2O) 8.0 cmH2O; BG PH 6.917 (7.350-7.450); BG PO2 146.3 mmHg (83.0-108.0); BG SAMPLE SITE RIGHT RADIAL; BG TIDAL VOLUME(mL) 500.0 mL; BG TOTAL HEMOGLOBIN 7.0 g/dL (13.5-17.5); BG TOTAL RESPIRATORY RATE 30 b/min; BG VENT MODE VENT - AC; BG VENT RATE 30.0 set
[2025-01-21] MEDS: PIPERACILLIN/TAZO 3.375G/50ML 50 ML IV SCH (05:39)
[2025-01-21 06:32] LABS: HEMATOCRIT. 24.5 % (42.0-52.0); MEAN PLATELET VOLUME 10.7 fl (7.4-10.4); PLATELET 115 x1000/uL (130-400); RED BLOOD CELL COUNT 2.47 mill/uL (4.7-6.1); RED CELL DISTRIBUTION WIDTH 19.6 % (11.6-14.6)
[2025-01-21 06:56] LABS: HEMOGLOBIN. 6.6 g/dL (14.0-18.0); T4 FREE 0.81 ng/dL (0.89-1.76)
[2025-01-21 07:01] LABS: CREATININE 1.8 mg/dL (0.6-1.3); TRIGLYCERIDE 143 mg/dL (0-150); UREA NITROGEN BLOOD 25 mg/dL (9-23)
[2025-01-21 07:02] LABS: LDL CHOLESTEROL 44 mg/dL (5-100)
[2025-01-21 07:25] LABS: HEPATITIS A AB IGM NEGATIVE (Negative)
[2025-01-21 07:26] LABS: HEPATITIS B CORE AB IGM NEGATIVE (Negative)
[2025-01-21 07:27] LABS: HEPATITIS C AB NON REACTIVE (Neg) (Negative)
[2025-01-21 08:42] LABS: BG BASE EXCESS -25.2 mmol/L (-2.0-3.0); BG CARBOXYHEMOGLOBIN 1.9 % (0.5-1.5); BG DEOXYHEMOGLOBIN 8.1 % (0.0-5.0); BG FRACTION INSPIRED OXYGEN 100; BG HCO3 ACT 5.8 mmol/L (21.0-28.0); BG METHEMOGLOBIN 0.1 % (0.5-1.5); BG OXYGEN SATURATION 91.7 % (94.0-98.0); BG OXYHEMOGLOBIN 89.9 % (94.0-98.0); BG PCO2 31.1 mmHg (35.0-48.0); BG PEEP (cmH2O) 8.0 cmH2O; BG PH 6.886 (7.350-7.450); BG PO2 81.3 mmHg (83.0-108.0); BG SAMPLE SITE LEFT RADIAL; BG TIDAL VOLUME(mL) 500.0 mL; BG TOTAL HEMOGLOBIN 6.5 g/dL (13.5-17.5); BG VENT MODE VENT - AC; BG VENT RATE 30.0 set
[2025-01-21] MEDS: VASOPRESSIN 20 UNIT in SODIUM CHLORIDE 0.9% 99 ML IV PRN (09:06)
[2025-01-21] MEDS: PHENYLEPHRINE 50MG/250ML PMX 250 ML IV PRN (09:27)
[2025-01-21] MEDS ORDERED: DEXTROSE 50% WATER 50ML SYRINGE IV PRN (09:30)
[2025-01-21] MEDS: SODIUM BICARBONATE 150 MEQ in DEXTROSE 5% WATER 850 ML IV SCH (11:13)
[2025-01-21 11:20] LABS: INR 3.2
[2025-01-21] MEDS: EPINEPHRINE 20 MG in SODIUM CHLORIDE 0.9% 480 ML IV PRN (12:31)
[2025-01-21] MEDS: NOREPINEPHRINE 32 MG in DEXT 5% WATER 218 ML IV PRN (12:33)
[2025-01-21] MEDS: INSULIN LISPRO 100 UNITS/ML SUBCUT SCH (13:01)
[2025-01-21] MEDS: IPRATROPIUM/ALBUTEROL 0.5-3(2.5)MG/3ML NEB HHN SCH (13:19)
[2025-01-21 13:28] LABS: INR 3.6
[2025-01-21 13:42] LABS: TROPONIN I HIGH SENSITIVITY 2373 ng/L (3.0-53)
[2025-01-21 13:48] LABS: BAND% 7.0 % (1.0-6.0); LYMPHOCYTES % MANUAL 57.0 % (20.0-50.0); MONOCYTES % MANUAL 3.0 % (2.0-8.0); NEUTROPHILS % MANUAL 33.0 % (45.0-75.0); NUCLEATED RED BLOOD CELLS 16 /100 WBC; PLATELET ESTIMATE DECREASED
[2025-01-21] MEDS ORDERED: ATROPINE SULFATE 1MG/10ML SYR IV PRN (14:45)
[2025-01-21] MEDS: PHENYLEPHRINE 100 MG in DEXT 5% WATER 240 ML IV PRN (15:21)
[2025-01-21] MEDS ORDERED: VANCOMYCIN 750MG/150ML (BAXTER) IV SCH (16:00)
[2025-01-21 19:19] LABS: CREATININE 2.3 mg/dL (0.6-1.3); UREA NITROGEN BLOOD 23 mg/dL (9-23)
[2025-01-21 20:33] LABS: BG BASE EXCESS -28.7 mmol/L (-2.0-3.0); BG CARBOXYHEMOGLOBIN 1.1 % (0.5-1.5); BG DEOXYHEMOGLOBIN 52.8 % (0.0-5.0); BG FRACTION INSPIRED OXYGEN 100; BG HCO3 ACT 5.2 mmol/L (21.0-28.0); BG METHEMOGLOBIN 0.2 % (0.5-1.5); BG OXYGEN SATURATION 46.5 % (94.0-98.0); BG OXYHEMOGLOBIN 45.9 % (94.0-98.0); BG PCO2 41.7 mmHg (35.0-48.0); BG PEEP (cmH2O) 8.0 cmH2O; BG PH 6.716 (7.350-7.450); BG PO2 31.7 mmHg (83.0-108.0); BG SAMPLE SITE RIGHT RADIAL; BG TIDAL VOLUME(mL) 500.0 mL; BG TOTAL HEMOGLOBIN 7.2 g/dL (13.5-17.5); BG VENT MODE VENT - AC; BG VENT RATE 30.0 set
[2025-01-21] MEDS ORDERED: LEVETIRACETAM 500MG PREMIX 100 ML IV SCH (21:00)
[2025-01-21] MEDS ORDERED: LEVETIRACETAM 500MG in NACL 100ML PREMIX IV SCH (21:00)
[2025-01-21] MEDS: DOPAMINE 400MG/250ML PREMIX 250 ML IV ONE (21:39)
== END 2025-01-21 21:02 | DRG 280 ==
LOC: ER 15:35 → EDBEDREQTM 18:30 → EDBEDREQSVC 18:30 → CVICU 18:32 → EDBEDREQ 18:36 → EDBEDREQTM 18:36 → ENRESERV 23:24
PROVIDERS: ADMIT Internal Medicine; ATTEND Internal Medicine
PROC: 30233N1 Transfusion of Nonautologous Red Blood Cells into Peripheral Vein, Percutaneous Approach (ICD-10-PCS; principal; 2025-01-20)
PROC: 5A1935Z Respiratory Ventilation, Less than 24 Consecutive Hours (ICD-10-PCS; 2025-01-20)
PROC: 02HV33Z Insertion of Infusion Device into Superior Vena Cava, Percutaneous Approach (ICD-10-PCS; 2025-01-20)
PROC: B548ZZA Ultrasonography of Superior Vena Cava, Guidance (ICD-10-PCS; 2025-01-20)
PROC: 0BH17EZ Insertion of Endotracheal Airway into Trachea, Via Natural or Artificial Opening (ICD-10-PCS; 2025-01-20)
PROC: 30233K1 Transfusion of Nonautologous Frozen Plasma into Peripheral Vein, Percutaneous Approach (ICD-10-PCS; 2025-01-21)
PROC: 5A12012 Performance of Cardiac Output, Single, Manual (ICD-10-PCS; 2025-01-21)
PROC: 6A550Z2 Pheresis of Platelets, Single (ICD-10-PCS; 2025-01-21)
DX: K70.30 Alcoholic cirrhosis of liver without ascites (principal); I46.9 Cardiac arrest, cause unspecified; D65 Disseminated intravascular coagulation [defibrination syndrome]; J69.0 Pneumonitis due to inhalation of food and vomit; R57.8 Other shock; G92.8 Other toxic encephalopathy; J96.01 Acute respiratory failure with hypoxia; E11.10 Type 2 diabetes mellitus with ketoacidosis without coma; D68.9 Coagulation defect, unspecified; K92.1 Melena; N17.9 Acute kidney failure, unspecified; G40.909 Epilepsy, unspecified, not intractable, without status epilepticus; K76.6 Portal hypertension; D50.0 Iron deficiency anemia secondary to blood loss (chronic); I10 Essential (primary) hypertension; F10.10 Alcohol abuse, uncomplicated; E88.09 Other disorders of plasma-protein metabolism, not elsewhere classified; E83.51 Hypocalcemia; K31.89 Other diseases of stomach and duodenum; I85.10 Secondary esophageal varices without bleeding; R00.1 Bradycardia, unspecified; Y90.0 Blood alcohol level of less than 20 mg/100 ml; E80.6 Other disorders of bilirubin metabolism; K72.90 Hepatic failure, unspecified without coma; Z79.899 Other long term (current) drug therapy
CPT/HCPCS: 31720; 36415; 36600; 71045; 76705; 80048; 80051; 80061; 80076; 80320; 82010; 82140; 82375; 82550; 82553; 82805; 82962; 83036; 83605; 83735; 83880; 83930; 84100; 84439; 84443; 84484; 85014; 85018; 85025; 85049; 85379; 85384; 86705; 86709; 86850; 86900; 86920; 86927; 87070; 87340; 92950; 93005; 93306; 93970; 94002; 94070; 94640; 94664; 98960; 99291; J0612; J1265; J1815; J1953; J2354; J2371; J2405; J2470; J2543; J3373; J3411; J3490; J7030; J7040; J7042; J7050; J7060; J7070; P9016; P9017; P9034; G0480